=== PATIENT | female | born 1990 | race Caucasian/White ===

== ENCOUNTER → 2023-03-21 | Outpatient (REF) | payer MEDICAID, OTHER ==
[~2023-03-21] MED LIST: ALBUTEROL INH; DOCU5LIQ FT; IBUP80TA FT; LEVO25TABR GT; LEVO25TABR OR; MECL-209 PO; ONDA4TAB6 PO; PRIL40CA OR
[2023-03-21 15:08] LABS: BASO # 0.1 10^3/uL (0.0-0.2); BASO % 0.4 % (0.0-1.0); EOS # 0.2 10^3/uL (0.0-0.5); EOS % 1.4 % (0.0-3.0); HEMATOCRIT 38.3 % (36.0-47.0); HEMOGLOBIN 12.8 g/dl (12.0-15.5); LYMPH # 2.2 10^3/uL (1.5-5.0); LYMPH % 17.4 % (24.0-44.0); MEAN CORPUSCULAR HEMOGLOBIN 31.9 pg (27.0-33.0); MEAN CORPUSCULAR HGB CONC 33.4 g/dl (32.0-36.5); MEAN CORPUSCULAR VOLUME 95.5 fl (80.0-96.0); MONO # 0.8 10^3/uL (0.0-0.8); MONO % 6.4 % (2.0-8.0); NEUTROPHILS # 9.2 10^3/uL (1.5-8.5); NEUTROPHILS % 73.8 % (36.0-66.0); PLATELET COUNT, AUTOMATED 291 10^3/uL (150-450); RED BLOOD COUNT 4.01 10^6/uL (4.00-5.40); WHITE BLOOD COUNT 12.4 10^3/uL (4.0-10.0)
[2023-03-21 15:46] LABS: ALBUMIN 2.7 G/DL (3.2-5.2); ALKALINE PHOSPHATASE 75 U/L (46-116); ALT/SGPT 15 U/L (7.0-40); AST/SGOT 10 U/L (<34); BILIRUBIN,TOTAL 0.2 MG/DL (0.3-1.2); BLOOD UREA NITROGEN 5 MG/DL (9-23); CALCIUM LEVEL 8.6 MG/DL (8.5-10.1); CARBON DIOXIDE LEVEL 26 MMOL/L (20-31); CHLORIDE LEVEL 104 MMOL/L (98-107); CREATININE FOR GFR 0.52 MG/DL (0.55-1.30); FOLATE > 24.0 NG/ML (>5.4); GLOMERULAR FILTRATION RATE > 60.0 (>60); GLUCOSE, FASTING 72 MG/DL (60-100); HEMOGLOBIN A1c 5.2 % (4.0-6.0); MAGNESIUM LEVEL 1.6 MG/DL (1.8-2.4); POTASSIUM SERUM 4.2 MMOL/L (3.5-5.1); SODIUM LEVEL 137 MMOL/L (136-145); TOTAL 25(OH) VITAMIN D 25.3 NG/ML (20.0-100.0); TOTAL PROTEIN 6.5 G/DL (5.7-8.2); VITAMIN B12 LEVEL 419 PG/ML (211-911)
[2023-03-21 16:00] LABS: HIV 1&2 SCREEN NEGATIVE (NEGATIVE)
[2023-03-21 16:07] LABS: HEPATITIS C VIRUS ABY INDEX < 0.02 INDEX (<0.8)
== END ==
LOC: MERGE 12:28 → M LAB REF 12:28
PROVIDERS: ATTEND Physician Assistant
DX: R20.2 Paresthesia of skin (principal); E55.9 Vitamin D deficiency, unspecified; Z11.9 Encounter for screening for infectious and parasitic diseases, unspecified; R51.9 Headache, unspecified

== ENCOUNTER → 2023-03-22 | Outpatient (CLI) | payer MEDICAID, OTHER ==
[2023-03-22 13:47] LABS: FREE T4 0.9 NG/DL (0.89-1.76); THYROID STIMULATING HORMONE 2.328 uIU/ML (0.55-4.78)
== END ==
LOC: MERGE 09:43 → M PLALAB 09:43
PROVIDERS: ATTEND Advanced Practice Midwife
DX: O99.282 Endocrine, nutritional and metabolic diseases complicating pregnancy, second trimester (principal); E03.9 Hypothyroidism, unspecified; Z3A.00 Weeks of gestation of pregnancy not specified

== ENCOUNTER → 2023-03-29 | Outpatient (CLI) | payer MEDICAID, OTHER | LOC: M LAB 06:45 | PROVIDERS: ATTEND Advanced Practice Midwife | DX: O99.810 Abnormal glucose complicating pregnancy (principal); Z3A.00 Weeks of gestation of pregnancy not specified ==

== ENCOUNTER → 2023-04-25 | Outpatient (CLI) | payer OTHER ==
[2023-04-25 14:45] LABS: BASO # 0.1 10^3/uL (0.0-0.2); BASO % 0.5 % (0.0-1.0); EOS # 0.1 10^3/uL (0.0-0.5); EOS % 0.8 % (0.0-3.0); HEMATOCRIT 35.7 % (36.0-47.0); LYMPH # 2.1 10^3/uL (1.5-5.0); LYMPH % 18.7 % (24.0-44.0); MEAN CORPUSCULAR HEMOGLOBIN 32.1 pg (27.0-33.0); MEAN CORPUSCULAR HGB CONC 33.6 g/dl (32.0-36.5); MEAN CORPUSCULAR VOLUME 95.5 fl (80.0-96.0); MONO # 0.8 10^3/uL (0.0-0.8); MONO % 6.9 % (2.0-8.0); NEUTROPHILS # 8.2 10^3/uL (1.5-8.5); NEUTROPHILS % 72.6 % (36.0-66.0); PLATELET COUNT, AUTOMATED 240 10^3/uL (150-450); RED BLOOD COUNT 3.74 10^6/uL (4.00-5.40); WHITE BLOOD COUNT 11.3 10^3/uL (4.0-10.0)
[2023-04-25 14:55] LABS: ERYTHROCYTE SEDIMENTATION RATE 23 mm/hr (0-20); HEMOGLOBIN A1c 5.1 % (4.0-6.0)
[2023-04-25 15:07] LABS: ALBUMIN 2.6 G/DL (3.2-5.2); ALKALINE PHOSPHATASE 89 U/L (46-116); ALT/SGPT < 9 U/L (7.0-40); AST/SGOT 10 U/L (<34); BILIRUBIN,TOTAL 0.3 MG/DL (0.3-1.2); BLOOD UREA NITROGEN 7 MG/DL (9-23); CALCIUM LEVEL 8.5 MG/DL (8.5-10.1); CARBON DIOXIDE LEVEL 24 MMOL/L (20-31); CHLORIDE LEVEL 104 MMOL/L (98-107); CREATININE FOR GFR 0.53 MG/DL (0.55-1.30); GLOMERULAR FILTRATION RATE > 60.0 (>60); GLUCOSE, FASTING 79 MG/DL (60-100); POTASSIUM SERUM 4.1 MMOL/L (3.5-5.1); SODIUM LEVEL 139 MMOL/L (136-145); TOTAL PROTEIN 6.3 G/DL (5.7-8.2)
[2023-04-25 15:08] LABS: FOLATE > 24.0 NG/ML (>5.4); VITAMIN B12 LEVEL 339 PG/ML (211-911)
[2023-04-25 15:09] LABS: THYROID STIMULATING HORMONE 3.581 uIU/ML (0.55-4.78)
[2023-04-25 17:46] LABS: RHEUMATOID FACTOR QUANT < 3.5 IU/ML (<14)
== END ==
LOC: M PLALAB 10:07
PROVIDERS: ATTEND Psychiatry & Neurology Neurology
DX: G62.9 Polyneuropathy, unspecified (principal)

== ENCOUNTER → 2023-05-03 | Outpatient (REF) | payer OTHER, MEDICAID | LOC: M SFHCWAGY 12:57 | PROVIDERS: ATTEND Advanced Practice Midwife | DX: Z3A.36 36 weeks gestation of pregnancy (principal) ==

== ENCOUNTER → 2023-05-16 | Outpatient (CLI) | payer OTHER | LOC: M RAD 12:01 | PROVIDERS: ATTEND Advanced Practice Midwife | DX: O24.419 Gestational diabetes mellitus in pregnancy, unspecified control (principal); Z3A.37 37 weeks gestation of pregnancy ==

== ENCOUNTER 2023-05-22 17:33 | Outpatient (CLI) | payer OTHER ==
[~2023-05-22] VITALS: Ht 162.6 cm; Wt 90.3 kg
[2023-05-22] MEDS ORDERED: LEVO75TA4 PO (17:49)
[2023-05-22] MEDS ORDERED: OMEP10CASR PO (17:49)
[2023-05-22] MEDS ORDERED: PRENTAB9 PO (17:49)
[2023-05-22] MEDS ORDERED: METF500T13 PO (17:49)
[2023-05-22] MEDS ORDERED: HOME MED LIST COMPLETE! XX SCH (17:50)
[2023-05-22 17:53] VITALS: BP 119/68
== END 2023-05-22 18:40 | disposition home or self-care (01) ==
LOC: M LDO 17:33
PROVIDERS: ATTEND Specialist
DX: O26.893 Other specified pregnancy related conditions, third trimester (principal); O24.419 Gestational diabetes mellitus in pregnancy, unspecified control; O99.333 Smoking (tobacco) complicating pregnancy, third trimester; R10.2 Pelvic and perineal pain; M54.50 Low back pain, unspecified; F17.210 Nicotine dependence, cigarettes, uncomplicated; Z3A.38 38 weeks gestation of pregnancy
CPT/HCPCS: 59025; G0463

== ENCOUNTER 2023-05-24 07:37 | Inpatient (IN) | payer OTHER, MEDICAID ==
[~2023-05-24] VITALS: Ht 162.6 cm; Wt 88.9 kg
[2023-05-24] VITALS (38 sets, daily range): BP systolic 84–142; BP diastolic 48–90
[~2023-05-24 07:37] MED LIST changes: +LEVO75TA4 PO; +METF500T13 PO; +OMEP10CASR PO; +PRENTAB9 PO
[2023-05-24 08:41] LABS: HEMOGLOBIN 12.2 g/dl (12.0-15.5); MEAN CORPUSCULAR HEMOGLOBIN 31.7 pg (27.0-33.0); MEAN CORPUSCULAR HGB CONC 34.9 g/dl (32.0-36.5); MEAN CORPUSCULAR VOLUME 90.9 fl (80.0-96.0); PLATELET COUNT, AUTOMATED 230 10^3/uL (150-450); RED BLOOD COUNT 3.85 10^6/uL (4.00-5.40); WHITE BLOOD COUNT 8.2 10^3/uL (4.0-10.0)
[2023-05-24] MEDS ORDERED: LIDOCAINE 1% MDV 20ML VIAL INFIL PRN (09:25)
[2023-05-24] MEDS ORDERED: OXYTOCIN DRIP 30 UNITS in IV 1 EA IV PRN (09:25)
[2023-05-24] MEDS ORDERED: METHYLERGONOVINE MALEATE 0.2MG/ML 1ML VIAL IM PRN (09:25)
[2023-05-24] MEDS ORDERED: TRANEXAMIC ACID INJection 1,000 MG in NS 100 ML IV PRN (09:25)
[2023-05-24] MEDS: miSOPROStol 50MCG 1/2 TABLET PO SCH (09:35)
[2023-05-24] MEDS: BUTORPHANOL 2 MG/ML 1ML VIAL IV ONE (14:42)
[2023-05-24] MEDS: PROMETHAZINE 25MG/ML 1ML VIAL IV PRN (14:42)
[2023-05-24] MEDS: LR 1,000 ML IV SCH (18:17)
[2023-05-24] MEDS: OXYTOCIN DRIP 30 UNITS in IV 1 EA IV SCH (18:17)
[2023-05-24] MEDS ORDERED: EPIDURAL/PCA KEYS XX PRN (18:40)
[2023-05-24] MEDS ORDERED: NALOXONE INJ 0.4MG/1ML VIAL IV PRN (18:40)
[2023-05-24] MEDS ORDERED: diphenhydrAMINE 50MG/ML VIAL IV PRN (18:40)
[2023-05-24] MEDS ORDERED: ONDANSETRON 4MG 2ML VIAL IV PRN (18:40)
[2023-05-24] MEDS: FENTANYL/ROPIVACAINE/NACL BAG 100 ML EPIDURAL SCH (20:19)
[2023-05-24] MEDS: ACETAMINOPHEN 500 MG TAB PO ONE (20:38)
[2023-05-24] MEDS: ePHEDrine SULFATE 25 MG/5 ML(5MG/ML) SYRINGE IVP PRN (21:26)
[2023-05-24] MEDS: LR 500 ML IV PRN (21:26)
[2023-05-25] VITALS (34 sets, daily range): BP systolic 90–136; BP diastolic 50–78; O2SAT 98–99
[2023-05-25] MEDS ORDERED: CALCIUM CARBONATE 500 MG CHEW U/D PO PRN (04:30)
[2023-05-25] MEDS ORDERED: MOM 30ML SUSPENSION UDC PO PRN (04:30)
[2023-05-25] MEDS: OXYTOCIN DRIP 30 UNITS in IV 1 EA IV SCH (04:30)
[2023-05-25] MEDS ORDERED: IBUPROFEN 800 MG TAB PO PRN (04:30)
[2023-05-25] MEDS ORDERED: RHOGAM 300MCG (1500IU) INJ IM SCH (04:30)
[2023-05-25] MEDS ORDERED: ACETAMINOPHEN TAB 650MG DOSE (2X325MG) PO PRN (04:30)
[2023-05-25] MEDS ORDERED: DIBUCAINE 1% OINTMENT 30GM TOP PRN (04:30)
[2023-05-25] MEDS ORDERED: METHYLERGONOVINE MALEATE 0.2 MG TAB PO PRN (04:30)
[2023-05-25] MEDS: PRENATAL VITAMINS CHEWABLE TABLET PO SCH (08:46)
[2023-05-25] MEDS: IBUPROFEN 600MG TAB PO PRN (10:42)
[2023-05-25] MEDS: ACETAMINOPHEN 500 MG TAB PO PRN (11:51)
[2023-05-25] MEDS: DOCUSATE SODIUM 100MG CAPSULE PO PRN (18:10)
[2023-05-26 05:58] VITALS: BP 121/82; O2SAT 98
[2023-05-27] MEDS ORDERED: MEASLES,MUMPS,RUBELLA VACCINE INJ (MMR-II) SC.IMMUN ONE (09:00)
== END 2023-05-26 11:45 | disposition home or self-care (01) | DRG 560 ==
LOC: M LDI 07:37 → M OBS 05-25 06:09
PROVIDERS: ADMIT Obstetrics & Gynecology; ATTEND Obstetrics & Gynecology
PROC: 3E0P7GC Introduction of Other Therapeutic Substance into Female Reproductive, Via Natural or Artificial Opening (ICD-10-PCS; 2023-05-24)
PROC: 10E0XZZ Delivery of Products of Conception, External Approach (ICD-10-PCS; principal; 2023-05-25)
DX: O24.425 Gestational diabetes mellitus in childbirth, controlled by oral hypoglycemic drugs (principal); Z37.0 Single live birth; Z3A.39 39 weeks gestation of pregnancy; O99.334 Smoking (tobacco) complicating childbirth; F17.210 Nicotine dependence, cigarettes, uncomplicated; O69.81X0 Labor and delivery complicated by cord around neck, without compression, not applicable or unspecified

== ENCOUNTER → 2023-07-20 | Outpatient (REF) | payer OTHER, MEDICAID ==
[2023-07-20 13:39] LABS: BASO # 0.1 10^3/uL (0.0-0.2); BASO % 1.1 % (0.0-1.0); EOS # 0.2 10^3/uL (0.0-0.5); EOS % 2.5 % (0.0-3.0); HEMATOCRIT 43.3 % (36.0-47.0); HEMOGLOBIN 14.1 g/dl (12.0-15.5); LYMPH # 2.1 10^3/uL (1.5-5.0); LYMPH % 29.1 % (24.0-44.0); MEAN CORPUSCULAR HEMOGLOBIN 30.7 pg (27.0-33.0); MEAN CORPUSCULAR HGB CONC 32.6 g/dl (32.0-36.5); MEAN CORPUSCULAR VOLUME 94.1 fl (80.0-96.0); MONO # 0.5 10^3/uL (0.0-0.8); MONO % 6.9 % (2.0-8.0); NEUTROPHILS # 4.3 10^3/uL (1.5-8.5); NEUTROPHILS % 60.4 % (36.0-66.0); PLATELET COUNT, AUTOMATED 344 10^3/uL (150-450); WHITE BLOOD COUNT 7.1 10^3/uL (4.0-10.0)
[2023-07-20 13:49] LABS: ALBUMIN 3.7 G/DL (3.2-5.2); ALKALINE PHOSPHATASE 61 U/L (46-116); ALT/SGPT 25 U/L (7.0-40); AST/SGOT 9 U/L (<34); BILIRUBIN,TOTAL 0.7 MG/DL (0.3-1.2); BLOOD UREA NITROGEN 14 MG/DL (9-23); CALCIUM LEVEL 9.1 MG/DL (8.5-10.1); CARBON DIOXIDE LEVEL 31 MMOL/L (20-31); CHLORIDE LEVEL 105 MMOL/L (98-107); CREATININE FOR GFR 0.82 MG/DL (0.55-1.30); GLOMERULAR FILTRATION RATE > 60.0 (>60); GLUCOSE, FASTING 90 MG/DL (60-100); IRON (FE) 84 UG/DL (50-170); PERCENT SATURATION 23.8 % (13.2-45.0); POTASSIUM SERUM 4.3 MMOL/L (3.5-5.1); SODIUM LEVEL 140 MMOL/L (136-145); THYROID STIMULATING HORMONE 0.939 uIU/ML (0.55-4.78); TOTAL IRON BINDING CAPACITY 353 UG/DL (250-425); TOTAL PROTEIN 7.1 G/DL (5.7-8.2)
[2023-07-20 13:50] LABS: VITAMIN B12 LEVEL 695 PG/ML (211-911)
[2023-07-20 13:58] LABS: FOLATE > 24.0 NG/ML (>5.4)
== END ==
LOC: M LAB REF 12:48
PROVIDERS: ATTEND Physician Assistant
DX: E03.9 Hypothyroidism, unspecified (principal); R61 Generalized hyperhidrosis

== ENCOUNTER → 2024-01-02 | Outpatient (CLI) | payer OTHER ==
[~2024-01-02] MED LIST changes: +FLON1SPR; +ONDA-282 PO; -ONDA4TAB6 PO; +PROA1AER2 INH
== END ==
LOC: M SOG 07:57
PROVIDERS: ATTEND Physician Assistant
DX: M25.522 Pain in left elbow (principal); Z53.9 Procedure and treatment not carried out, unspecified reason

== ENCOUNTER → 2024-01-22 | Outpatient (CLI) | payer OTHER | LOC: M SOG 07:51 | PROVIDERS: ATTEND Physician Assistant | DX: M25.522 Pain in left elbow (principal); Z53.9 Procedure and treatment not carried out, unspecified reason ==

== ENCOUNTER → 2024-04-23 | Outpatient (REF) | payer OTHER ==
[2024-04-23 16:57] LABS: FREE T4 1.56 NG/DL (0.89-1.76); THYROID STIMULATING HORMONE 3.052 uIU/ML (0.55-4.78)
== END ==
LOC: M LAB REF 16:29
PROVIDERS: ATTEND Physician Assistant
DX: E03.9 Hypothyroidism, unspecified (principal)

== ENCOUNTER → 2024-11-20 | Outpatient (REF) | payer OTHER, MEDICAID ==
[2024-11-20 17:31] LABS: ALT/SGPT 14 U/L (7.0-40); AST/SGOT 9 U/L (<34); CALCIUM LEVEL 9.2 MG/DL (8.5-10.1); CARBON DIOXIDE LEVEL 30 MMOL/L (20-31); CHLORIDE LEVEL 106 MMOL/L (98-107); CREATININE FOR GFR 0.82 MG/DL (0.55-1.30); GLOMERULAR FILTRATION RATE > 90.0 (>60); POTASSIUM SERUM 4.1 MMOL/L (3.5-5.1); SODIUM LEVEL 141 MMOL/L (136-145)
[2024-11-20 17:32] LABS: TOTAL 25(OH) VITAMIN D 20.6 NG/ML (20.0-100.0)
[2024-11-20 17:33] LABS: FREE T4 1.52 NG/DL (0.89-1.76); LUTEINIZING HORMONE 5.3 mIU/ML
== END ==
LOC: M LAB REF 16:18
PROVIDERS: ATTEND Physician Assistant
DX: R23.2 Flushing (principal); E03.9 Hypothyroidism, unspecified; E55.9 Vitamin D deficiency, unspecified